=== PATIENT | female | born 1980 | race Caucasian/White ===

== ENCOUNTER 2019-12-23 23:59 | Emergency (ER) | payer OTHER ==
[~2019-12-23] VITALS: Ht 160 cm; Wt 65.8 kg
[2019-12-24 00:33] LABS: AMPHETAMINES SCREEN,URINE POSITIVE (NEGATIVE); BENZODIAZEPINES SCREEN,URINE NEGATIVE (NEGATIVE); BILIRUBIN,URINE NEGATIVE (NEGATIVE); CLARITY,URINE SL CLOUDY (CLEAR); COLOR,URINE YELLOW (YELLOW); KETONES,URINE NEGATIVE (NEGATIVE); LEUKOCYTE ESTERASE ,URINE NEGATIVE (NEGATIVE); NITRITE,URINE NEGATIVE (NEGATIVE); PHENCYCLIDINE SCREEN,URINE NEGATIVE (NEGATIVE); PREGNANCY TEST, URINE NEGATIVE (NEGATIVE); PROTEIN,URINE DIPSTICK NEGATIVE (NEGATIVE); URINE UROBILINOGEN 1 mg/dL (0.2 - 1)
[2019-12-24 00:36] LABS: BASOPHILS # (AUTO) 0.1 (0.0-0.1); BASOPHILS % 0.6 % (0.0-1.0); EOSINOPHILS # (AUTO) 0.3 (0.0-0.4); EOSINOPHILS % 2.1 % (0.0-6.0); HEMOGLOBIN 13.3 g/dL (12.0-16.0); LYMPHOCYTES # (AUTO) 5.6 (1.0-3.2); LYMPHOCYTES % 34.9 % (18.0-39.1); MEAN CORPUSCULAR HEMOGLOBIN 28.4 pg (28-32); MEAN CORPUSCULAR HGB CONC 32.4 g/dL (31-35); MEAN CORPUSCULAR VOLUME 87.6 fL (81-99); NEUTROPHILS % 55.9 % (38.7-80.0); PLATELET COUNT 470 x10e3/uL (140-360); RED BLOOD COUNT 4.68 x10e6/uL (3.6-5.1); RED CELL DISTRIBUTION WIDTH 14.6 % (11.7-14.4)
[2019-12-24 00:37] LABS: BACTERIA,URINE MODERATE /HPF; EPITHELIAL CELLS,URINE FEW /LPF; WBC,URINE (MAN) 0-5 /HPF (0-5)
--- NOTE | 2019-12-24 00:41 | NUR ---
PT DENIES ANY SUICIDAL OR HOMICIDAL IDEATION; RESP ARE EVEN AND UNLABORED, O2 SAT RA 100%; NAD NOTED
[2019-12-24 00:55] LABS: SALICYLATE < 5.0 mg/dL (0-30)
[2019-12-24 00:56] LABS: ALBUMIN/GLOBULIN RATIO 1.1 (0.8-2.0); ANION GAP 13.9 mmol/L (8-16); CALCIUM 9.5 mg/dL (8.4-10.2); CREATININE, SERUM 1.02 mg/dL (0.57-1.11); POTASSIUM 3.9 mmol/L (3.5-5.1)
--- NOTE | 2019-12-24 01:00 | Emergency Department Note ---
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 Historian: Patient Arrival Mode: [place] Onset (how long ago): month(s) (1) Location: head Quality: dizziness Radiation: Reports non-radiation Severity: mild Onset quality: gradual Duration (how long): month(s) (1) Timing of current episode: constant Progression: unchanged Chronicity: chronic Context: Denies recent illness, Denies recent surgery Relieving factors: none Exacerbating factors: none Associated symptoms: Reports cough (for past 2 weeks) Treatments prior to arrival: other (pt took otc nyquil) Past Medical/Family History Physician Review I have reviewed the patient's past medical and family history. Any updates have been documented here. Past Medical History Recent Fever: No Clinical Suspicion of Infectio: No New/Unexplained Change in Ment: No Past Medical History: Asthma, Depression, Other Mental Illness Other Medical History: SCHIZOPHRENIA PTSD Social History Smoking Cessation: Current every day smoker Alcohol Use: None Any Illegal Drug Use: Yes (crystal meth) Family History Family history of heart diseas: No Review of Systems Review of Systems Constitutional: Reports no symptoms EENTM: Reports no symptoms Cardiovascular: Reports no symptoms Respiratory: Reports as per HPI Gastrointestinal: Reports no symptoms Genitourinary: Reports no symptoms Musculoskeletal: Reports no symptoms Integumentary: Reports no symptoms Neurological: Reports as per HPI Psychological: Reports no symptoms Endocrine: Reports no symptoms Hematological/Lymphatic: Reports no symptoms Physical Exam Related Data Allergies: Coded Allergies: promethazine (Verified Allergy, Unknown, 12/24/19) sulfamethoxazole (Verified Allergy, Unknown, 12/24/19) trimethoprim (Verified Allergy, Unknown, 12/24/19) Triage Vital Signs Vital Signs Date Time Temp Pulse Resp B/P (MAP) Pulse Ox O2 Delivery O2 Flow Rate FiO2 12/23/19 23:59 98.8 99 18 116/86 100 Room Air Vital signs reviewed: Yes Physical Exam CONSTITUTIONAL Constitutional: Present well-developed, Present well-nourished; Absent distressed HENT HENT: Present normocephalic, Present atraumatic, Present oropharynx clear/moist, Present nose normal HENT L/R: Present left ext ear normal, Present right ext ear normal EYES Eyes: Reports PERRL, Reports conjunctivae normal NECK Neck: Present ROM normal PULMONARY Pulmonary: Present effort normal, Present breath sounds normal CARDIOVASCULAR Cardiovascular: Present regular rhythm, Present heart sounds normal, Present capillary refill normal, Present normal rate GASTROINTESTINAL Abdominal: Present soft, Present nontender, Present bowel sounds normal GENITOURINARY Genitourinary: Present exam deferred SKIN Skin: Present warm, Present dry MUSCULOSKELETAL Musculoskeletal: Present ROM normal NEUROLOGICAL Neurological: Present alert, Present oriented x 3, Present no gross motor or sensory deficits PSYCHOLOGICAL Psychological: Present other (pt with paranoid delusions) Results Laboratory Result Diagram: 12/24/19 0017 Laboratory Laboratory Tests Test 12/24/19 00:17 12/24/19 00:03 White Blood Count 16.09 x10e3/uL (4.8-10.8) Red Blood Count 4.68 x10e6/uL (3.6-5.1) Hemoglobin 13.3 g/dL (12.0-16.0) Hematocrit 41.0 % (34.2-44.1) Mean Corpuscular Volume 87.6 fL (81-99) Mean Corpuscular Hemoglobin 28.4 pg (28-32) Mean Corpuscular Hemoglobin Concent 32.4 g/dL (31-35) Red Cell Distribution Width 14.6 % (11.7-14.4) Platelet Count 470 x10e3/uL (140-360) Neutrophils (%) (Auto) 55.9 % (38.7-80.0) Lymphocytes (%) (Auto) 34.9 % (18.0-39.1) Monocytes (%) (Auto) 6.0 % (4.4-11.3) Eosinophils (%) (Auto) 2.1 % (0.0-6.0) Basophils (%) (Auto) 0.6 % (0.0-1.0) Neutrophils # (Auto) 9.0 (2.1-6.9) Lymphocytes # (Auto) 5.6 (1.0-3.2) Monocytes # (Auto) 1.0 (0.2-0.8) Eosinophils # (Auto) 0.3 (0.0-0.4) Basophils # (Auto) 0.1 (0.0-0.1) Absolute Immature Granulocyte (auto 0.08 x10e3/uL (0-0.1) Sodium Level 139 mmol/L (136-145) Potassium Level 3.9 mmol/L (3.5-5.1) Chloride Level 104 mmol/L (98-107) Carbon Dioxide Level 25 mmol/L (22-29) Anion Gap 13.9 mmol/L (8-16) Blood Urea Nitrogen 24 mg/dL (7-26) Creatinine 1.02 mg/dL (0.57-1.11) Estimat Glomerular Filtration Rate 60 ML/MIN (60-) BUN/Creatinine Ratio 24 (6-25) Glucose Level 102 mg/dL (74-118) Calcium Level 9.5 mg/dL (8.4-10.2) Total Bilirubin 0.3 mg/dL (0.2-1.2) Aspartate Amino Transf (AST/SGOT) 22 IU/L (5-34) Alanine Aminotransferase (ALT/SGPT) 36 IU/L (0-55) Alkaline Phosphatase 61 IU/L (40-150) Total Protein 7.5 g/dL (6.5-8.1) Albumin 4.0 g/dL (3.5-5.0) Globulin 3.5 g/dL (2.3-3.5) Albumin/Globulin Ratio 1.1 (0.8-2.0) Salicylates Level < 5.0 mg/dL (0-30) Acetaminophen Level 4.6 ug/mL (10-30) Ethyl Alcohol Level < 10.0 mg/dL (0.0-10.0) Urine Color Yellow (YELLOW) Urine Clarity Sl cloudy (CLEAR) Urine pH 6 (5 - 7) Urine Specific [place] 1.030 (1.010-1.025) Urine Protein Negative (NEGATIVE) Urine Glucose (UA) Negative (NEGATIVE) Urine Ketones Negative (NEGATIVE) Urine Blood Trace (NEGATIVE) Urine Nitrite Negative (NEGATIVE) Urine Bilirubin Negative (NEGATIVE) Urine Urobilinogen 1 mg/dL (0.2 - 1) Urine Leukocyte Esterase Negative (NEGATIVE) Urine RBC 6-10 /HPF (0-5) Urine WBC 0-5 /HPF (0-5) Urine Epithelial Cells Few /LPF (NONE) Urine Bacteria Moderate /HPF (NONE) Urine Test Negative (NEGATIVE) Urine Opiates Screen Negative (NEGATIVE) Urine Methadone Screen Negative (NEGATIVE) Urine Barbiturates Screen Negative (NEGATIVE) Urine Phencyclidine Screen Negative (NEGATIVE) Urine Amphetamines Screen Positive (NEGATIVE) Urine Methamphetamines Screen Positive (NEGATIVE) Urine Benzodiazepines Screen Negative (NEGATIVE) Urine Cocaine Screen Negative (NEGATIVE) Urine Cannabinoids Screen Negative (NEGATIVE) Laboratory Tests Test 12/24/19 00:17 12/24/19 00:03 White Blood Count 16.09 x10e3/uL (4.8-10.8) Red Blood Count 4.68 x10e6/uL (3.6-5.1) Hemoglobin 13.3 g/dL (12.0-16.0) Hematocrit 41.0 % (34.2-44.1) Mean Corpuscular Volume 87.6 fL (81-99) Mean Corpuscular Hemoglobin 28.4 pg (28-32) Mean Corpuscular Hemoglobin Concent 32.4 g/dL (31-35) Red Cell Distribution Width 14.6 % (11.7-14.4) Platelet Count 470 x10e3/uL (140-360) Neutrophils (%) (Auto) 55.9 % (38.7-80.0) Lymphocytes (%) (Auto) 34.9 % (18.0-39.1) Monocytes (%) (Auto) 6.0 % (4.4-11.3) Eosinophils (%) (Auto) 2.1 % (0.0-6.0) Basophils (%) (Auto) 0.6 % (0.0-1.0) Neutrophils # (Auto) 9.0 (2.1-6.9) Lymphocytes # (Auto) 5.6 (1.0-3.2) Monocytes # (Auto) 1.0 (0.2-0.8) Eosinophils # (Auto) 0.3 (0.0-0.4) Basophils # (Auto) 0.1 (0.0-0.1) Absolute Immature Granulocyte (auto 0.08 x10e3/uL (0-0.1) Urine Color Yellow (YELLOW) Urine Clarity Sl cloudy (CLEAR) Urine pH 6 (5 - 7) Urine Specific [place] 1.030 (1.010-1.025) Urine Protein Negative (NEGATIVE) Urine Glucose (UA) Negative (NEGATIVE) Urine Ketones Negative (NEGATIVE) Urine Blood Trace (NEGATIVE) Urine Nitrite Negative (NEGATIVE) Urine Bilirubin Negative (NEGATIVE) Urine Urobilinogen 1 mg/dL (0.2 - 1) Urine Leukocyte Esterase Negative (NEGATIVE) Urine RBC 6-10 /HPF (0-5) Urine WBC 0-5 /HPF (0-5) Urine Epithelial Cells Few /LPF (NONE) Urine Bacteria Moderate /HPF (NONE) Urine Test Negative (NEGATIVE) Urine Opiates Screen Negative (NEGATIVE) Urine Methadone Screen Negative (NEGATIVE) Urine Barbiturates Screen Negative (NEGATIVE) Urine Phencyclidine Screen Negative (NEGATIVE) Urine Amphetamines Screen Positive (NEGATIVE) Urine Methamphetamines Screen Positive (NEGATIVE) Urine Benzodiazepines Screen Negative (NEGATIVE) Urine Cocaine Screen Negative (NEGATIVE) Urine Cannabinoids Screen Negative (NEGATIVE) Lab results reviewed: Yes Imaging Imaging results reviewed: Yes Impressions Procedure: [id number] DX/CHEST SINGLE (PORTABLE) Exam Date: 12/24/19 Exam Time: 44 REPORT STATUS: Signed EXAMINATION: CHEST SINGLE (PORTABLE) INDICATION: ^Y ^cough ^[id number] ^[id number] ^Y COMPARISON: None FINDINGS: TUBES and LINES: None. LUNGS: Normal lung volumes. Lungs are clear. No consolidations. PLEURA: No pleural effusion or pneumothorax. HEART AND MEDIASTINUM: The cardiomediastinal silhouette is unremarkable. BONES AND SOFT TISSUES: No acute osseous lesion. Soft tissues are unremarkable. UPPER ABDOMEN: No free air under the diaphragm. IMPRESSION: No acute thoracic radiographic abnormality. Signed by: Micheal Navarro MD on 12/24/2019 1:08 AM Dictated By: MICHEAL NAVARRO MD 7 Transcribed By: ITZEL on 12/24/19107 COPY TO: JP ZHENG MD~ Procedure: [id number] CT/CT BRAIN WO Exam Date: 12/24/19 Exam Time: 44 REPORT STATUS: Signed History: Dizziness Comparison studies: None Technique: Axial images were obtained from the skull base to the vertex. Coronal and sagittal reconstructions obtained from the axial data. Dose modulation, iterative reconstruction, and/or weight based adjustment of the mA/kV was utilized to reduce the radiation dose to as low as reasonably achievable. Intravenous contrast: None Findings: Scalp/skull: No abnormalities. No fractures, blastic or lytic lesions. Extra-axial spaces: No masses. No fluid collections. Brain sulci: Appropriate for age. Ventricles: Normal in size and configuration. No hydrocephalus. Parenchyma: No abnormal densities. No masses, hemorrhage, acute or chronic cortical vascular insults. Sellar/suprasellar region: No abnormalities Craniocervical junction: Patent foramen magnum. No Chiari one malformation. Incidental findings: None. IMPRESSION: No abnormalities. Signed by: Dr. Luis Miguel Sams M.D. on 12/24/2019 1:29 AM Dictated By: LUIS MIGUEL SAMS MD, MD 8 Transcribed By: ITZEL on 12/24/19128 COPY TO: JP ZHENG MD~ Assessment & Plan Medical Decision Making MDM pt with c/o dizziness and thinks she is being poisoned cbc, cmp, ct brain, ua, uds, etoh, cxr ordered to eval for intracranial pathology(mass), electrolyte abnormality, substance abuse, pneumonia, uti Assessment & Plan Final Impression: (1) Methamphetamine abuse (2) Delusional disorder (3) Paranoia Depart Disposition: HOME, SELF-CARE Last Vital Signs Date Time Temp Pulse Resp B/P (MAP) Pulse Ox O2 Delivery O2 Flow Rate FiO2 12/23/19 23:59 98.8 99 18 116/86 100 Room Air JP ZHENG MD Dec 24, 2019 01:00
--- NOTE | 2019-12-24 01:11 | Diagnostic Imaging Report ---
EXAMINATION: CHEST SINGLE (PORTABLE) INDICATION: ^Y ^cough ^[id number] ^0045 ^Y COMPARISON: None FINDINGS: TUBES and LINES: None. LUNGS: Normal lung volumes. Lungs are clear. No consolidations. PLEURA: No pleural effusion or pneumothorax. HEART AND MEDIASTINUM: The cardiomediastinal silhouette is unremarkable. BONES AND SOFT TISSUES: No acute osseous lesion. Soft tissues are unremarkable. UPPER ABDOMEN: No free air under the diaphragm. IMPRESSION: No acute thoracic radiographic abnormality. Signed by: Ollie Luo MD on 12/24/2019 1:08 AM
--- NOTE | 2019-12-24 01:32 | Diagnostic Imaging Report ---
History: Dizziness Comparison studies: None Technique: Axial images were obtained from the skull base to the vertex. Coronal and sagittal reconstructions obtained from the axial data. Dose modulation, iterative reconstruction, and/or weight based adjustment of the mA/kV was utilized to reduce the radiation dose to as low as reasonably achievable. Intravenous contrast: None Findings: Scalp/skull: No abnormalities. No fractures, blastic or lytic lesions. Extra-axial spaces: No masses. No fluid collections. Brain sulci: Appropriate for age. Ventricles: Normal in size and configuration. No hydrocephalus. Parenchyma: No abnormal densities. No masses, hemorrhage, acute or chronic cortical vascular insults. Sellar/suprasellar region: No abnormalities Craniocervical junction: Patent foramen magnum. No Chiari one malformation. Incidental findings: None. IMPRESSION: No abnormalities. Signed by: Dr. Luis Miguel Sams M.D. on 12/24/2019 1:29 AM
== END 2019-12-24 04:31 | disposition home or self-care (01) ==
LOC: ER 12-24 01:30
DX: R42 Dizziness and giddiness (principal); F15.10 Other stimulant abuse, uncomplicated; F22 Delusional disorders; F20.9 Schizophrenia, unspecified; F17.210 Nicotine dependence, cigarettes, uncomplicated
CPT/HCPCS: 36415; 70450; 71045; 80053; 80307; 80320; 80329; 81001; 81025; 85025; 99284

== ENCOUNTER 2020-03-04 01:22 | Inpatient (IN) | payer OTHER ==
[~2020-03-04] VITALS: Ht 160 cm; Wt 65.8 kg
[2020-03-04] VITALS (7 sets, daily range): BP systolic 101–132; BP diastolic 67–97
[2020-03-04] MEDS ORDERED: FENTANYL CITRATE/PF 100MCG/2 ML INJ IV ONE (01:45)
[2020-03-04 01:54] LABS: BASOPHILS # (AUTO) 0.1 (0.0-0.1); BASOPHILS % 0.9 % (0.0-1.0); EOSINOPHILS # (AUTO) 0.4 (0.0-0.4); EOSINOPHILS % 2.6 % (0.0-6.0); HEMATOCRIT 42.7 % (34.2-44.1); HEMOGLOBIN 13.8 g/dL (12.0-16.0); LYMPHOCYTES # (AUTO) 4.1 (1.0-3.2); LYMPHOCYTES % 25.8 % (18.0-39.1); MEAN CORPUSCULAR HEMOGLOBIN 28.1 pg (28-32); MEAN CORPUSCULAR HGB CONC 32.3 g/dL (31-35); NEUTROPHILS # (AUTO) 10.2 (2.1-6.9); NEUTROPHILS % 64.1 % (38.7-80.0); PLATELET COUNT 339 x10e3/uL (140-360); RED BLOOD COUNT 4.91 x10e6/uL (3.6-5.1); RED CELL DISTRIBUTION WIDTH 13.8 % (11.7-14.4)
[2020-03-04 01:55] LABS: COLOR,URINE YELLOW (YELLOW)
[2020-03-04 01:56] LABS: CLARITY,URINE CLOUDY (CLEAR); KETONES,URINE NEGATIVE (NEGATIVE); LEUKOCYTE ESTERASE ,URINE MODERATE (NEGATIVE); NITRITE,URINE NEGATIVE (NEGATIVE); PROTEIN,URINE DIPSTICK 1+ (NEGATIVE); URINE UROBILINOGEN 0.2 mg/dL (0.2 - 1)
[2020-03-04] MEDS ORDERED: SODIUM CHLORIDE 0.9% 1000ML 1,000 ML IV SCH (02:00)
[2020-03-04 02:03] LABS: BACTERIA,URINE MANY /HPF; EPITHELIAL CELLS,URINE MODERATE /LPF; WBC,URINE (MAN) >50 /HPF (0-5)
[2020-03-04 02:14] LABS: ALBUMIN 3.8 g/dL (3.5-5.0); ALBUMIN/GLOBULIN RATIO 1.1 (0.8-2.0); ANION GAP 15.2 mmol/L (8-16); CALCIUM 9.6 mg/dL (8.4-10.2); CREATININE, SERUM 1.24 mg/dL (0.57-1.11); POTASSIUM 4.2 mmol/L (3.5-5.1)
[2020-03-04] MEDS: CEFTRIAXONE SOD 1 GM/NS 50 ML 50 ML IV ONE ×2 (03:16→03:50)
[2020-03-04] MEDS ORDERED: ONDANSETRON HCL INJ 2MG/ML 2ML 2 MG/ML VIAL IV PRN (03:45)
[2020-03-04] MEDS ORDERED: ACETAMINOPHEN 325 MG TAB PO PRN (04:00)
[2020-03-04] MEDS: SODIUM CHLORIDE 0.9% 1000ML 1,000 ML IV SCH ×3 (04:05→22:16)
[2020-03-04] MEDS: MORPHINE SULFATE INJ 4 MG/ML INJ 1ML IV PRN ×4 (06:50→22:19)
[2020-03-04] MEDS: ACETAMINOPHEN/CODEINE 300MG - 30MG TAB PO PRN ×2 (15:07→19:20)
[2020-03-04] MEDS: CEFTRIAXONE SOD 1 GM/NS 50 ML 50 ML IV SCH (19:20)
[2020-03-05] VITALS (8 sets, daily range): BP systolic 92–122; BP diastolic 66–89
[2020-03-05] MEDS: MORPHINE SULFATE INJ 4 MG/ML INJ 1ML IV PRN ×4 (05:09→22:15)
[2020-03-05] MEDS: SODIUM CHLORIDE 0.9% 1000ML 1,000 ML IV SCH ×3 (05:32→18:35)
[2020-03-05 08:25] LABS: ALANINE AMINOTRANSFERASE 58 IU/L (0-55); ALBUMIN 2.7 g/dL (3.5-5.0); ALBUMIN/GLOBULIN RATIO 0.8 (0.8-2.0); ALKALINE PHOSPHATASE 61 IU/L (40-150); ANION GAP 11.3 mmol/L (8-16); BLOOD UREA NITROGEN 14 mg/dL (7-26); BUN/CREATININE RATIO 16 (6-25); CARBON DIOXIDE 17 mmol/L (22-29); CHLORIDE 111 mmol/L (98-107); CREATININE, SERUM 0.85 mg/dL (0.57-1.11); EST GLOMERULAR FILTRATION RATE > 60 ML/MIN (60-); GLUCOSE 114 mg/dL (74-118); POTASSIUM 4.3 mmol/L (3.5-5.1); SODIUM 135 mmol/L (136-145)
[2020-03-05 08:40] LABS: CALCIUM 8.2 mg/dL (8.4-10.2)
[2020-03-05 10:16] LABS: BASOPHILS # (AUTO) 0.1 (0.0-0.1); BASOPHILS % 0.5 % (0.0-1.0); EOSINOPHILS # (AUTO) 0.2 (0.0-0.4); EOSINOPHILS % 1.4 % (0.0-6.0); HEMATOCRIT 44.7 % (34.2-44.1); HEMOGLOBIN 14.4 g/dL (12.0-16.0); LYMPHOCYTES % 17.7 % (18.0-39.1); MEAN CORPUSCULAR HEMOGLOBIN 28.5 pg (28-32); MEAN CORPUSCULAR HGB CONC 32.2 g/dL (31-35); MEAN CORPUSCULAR VOLUME 88.5 fL (81-99); MONOCYTES # (AUTO) 1.3 (0.2-0.8); MONOCYTES % 7.7 % (4.4-11.3); NEUTROPHILS # (AUTO) 12.2 (2.1-6.9); PLATELET COUNT 205 x10e3/uL (140-360); RED BLOOD COUNT 5.05 x10e6/uL (3.6-5.1); RED CELL DISTRIBUTION WIDTH 13.9 % (11.7-14.4)
[2020-03-05] MEDS: DOCUSATE SODIUM 100 MG CAP PO SCH (12:55)
[2020-03-05] MEDS: NICOTINE 21 MG/EA PATCH TOP SCH (12:55)
[2020-03-05] MEDS: CEFTRIAXONE SOD 1 GM/NS 50 ML 50 ML IV SCH (19:00)
[2020-03-06] VITALS: BP 127/85
[2020-03-06] MEDS: SODIUM CHLORIDE 0.9% 1000ML 1,000 ML IV SCH (02:17)
[2020-03-06] MEDS: MORPHINE SULFATE INJ 4 MG/ML INJ 1ML IV PRN ×2 (03:20→08:10)
[2020-03-06 04:00] VITALS: BP 115/80
[2020-03-06] MEDS ORDERED: METRONIDAZOLE 500 MG TAB PO SCH (06:00)
[2020-03-06] MEDS: NICOTINE 21 MG/EA PATCH TOP SCH (08:07)
[2020-03-06 08:27] VITALS: BP 124/81
[2020-03-06] MEDS: DOCUSATE SODIUM 100 MG CAP PO SCH (09:00)
[2020-03-06 09:22] VITALS: BP 124/81
[2020-03-06 12:33] LABS: BASOPHILS # (AUTO) 0.1 (0.0-0.1); BASOPHILS % 0.6 % (0.0-1.0); EOSINOPHILS # (AUTO) 0.4 (0.0-0.4); EOSINOPHILS % 2.8 % (0.0-6.0); HEMATOCRIT 38.4 % (34.2-44.1); HEMOGLOBIN 12.4 g/dL (12.0-16.0); LYMPHOCYTES # (AUTO) 3.4 (1.0-3.2); LYMPHOCYTES % 26.4 % (18.0-39.1); MEAN CORPUSCULAR HEMOGLOBIN 28.4 pg (28-32); MEAN CORPUSCULAR HGB CONC 32.3 g/dL (31-35); MEAN CORPUSCULAR VOLUME 87.9 fL (81-99); MONOCYTES # (AUTO) 1.2 (0.2-0.8); MONOCYTES % 9.5 % (4.4-11.3); NEUTROPHILS # (AUTO) 7.7 (2.1-6.9); NEUTROPHILS % 59.5 % (38.7-80.0); PLATELET COUNT 274 x10e3/uL (140-360); RED BLOOD COUNT 4.37 x10e6/uL (3.6-5.1); RED CELL DISTRIBUTION WIDTH 13.6 % (11.7-14.4)
[2020-03-06 12:44] VITALS: BP 121/94
[2020-03-06 12:53] LABS: ALANINE AMINOTRANSFERASE 67 IU/L (0-55); ALBUMIN 2.8 g/dL (3.5-5.0); ALBUMIN/GLOBULIN RATIO 0.9 (0.8-2.0); ALKALINE PHOSPHATASE 60 IU/L (40-150); ANION GAP 12.6 mmol/L (8-16); BLOOD UREA NITROGEN 11 mg/dL (7-26); BUN/CREATININE RATIO 14 (6-25); CALCIUM 7.9 mg/dL (8.4-10.2); CARBON DIOXIDE 21 mmol/L (22-29); CHLORIDE 108 mmol/L (98-107); CREATININE, SERUM 0.76 mg/dL (0.57-1.11); EST GLOMERULAR FILTRATION RATE > 60 ML/MIN (60-); GLUCOSE 84 mg/dL (74-118); POTASSIUM 4.6 mmol/L (3.5-5.1); SODIUM 137 mmol/L (136-145)
== END 2020-03-06 13:35 | disposition home or self-care (01) | DRG 872 ==
LOC: ER 01:40 → ERHOLD 03:47 → MED/SURG3 05:48
PROVIDERS: ADMIT Internal Medicine; ATTEND Internal Medicine
DX: A41.51 Sepsis due to Escherichia coli [E. coli] (principal); N13.6 Pyonephrosis; N17.9 Acute kidney failure, unspecified; N28.1 Cyst of kidney, acquired; F43.10 Post-traumatic stress disorder, unspecified; F32.9 Major depressive disorder, single episode, unspecified; K21.9 Gastro-esophageal reflux disease without esophagitis; F20.9 Schizophrenia, unspecified; Z20.822 Contact with and (suspected) exposure to COVID-19; I12.9 Hypertensive chronic kidney disease with stage 1 through stage 4 chronic kidney disease, or unspecified chronic kidney disease; N18.30 Chronic kidney disease, stage 3 unspecified
CPT/HCPCS: 36415; 74018; 74176; 80053; 81001; 83605; 83735; 84702; 85025; 87040; 87086; 87186; 96361; 99284; J0696; J2270; J2405; J3010; J7030; U0002